=== PATIENT | female | born 1960 | race Hispanic/Latino ===

== ENCOUNTER 2018-09-02 21:50 | Observation (INO) | payer BC, OTHER ==
[~2018-09-02] VITALS: Ht 160 cm; Wt 78.5 kg
[2018-09-02 22:24] LABS: APPEARANCE,URINE Cloudy (CLEAR); BILIRUBIN,URINE Negative (NEGATIVE); COLOR,URINE Yellow (YELLOW); GLUCOSE, URINE (UA) Negative (NEGATIVE); KETONES,URINE Negative (NEGATIVE); LEUKOCYTE ESTERASE ,URINE Large (NEGATIVE); NITRATE,URINE Negative (NEGATIVE); OCCULT BLOOD,URINE Negative (NEGATIVE); PROTEIN,URINE Trace (NEGATIVE); UROBILINOGEN,URINE 0.2 mg/dL (0.2-1.0)
[2018-09-02 22:31] LABS: EOSINOPHILS % (AUTO) 3.8 % (0.0-8.0); HEMATOCRIT 37.4 % (36-48); LYMPHOCYTES % (AUTO) 29.1 % (21.0-51.0); MEAN CORPUSCULAR HEMOGLOBIN 30.8 pg (27.0-33.0); MEAN CORPUSCULAR VOLUME 90.6 fL (79-99); MONOCYTES % (AUTO) 8.9 % (3.0-13.0); NEUTROPHILS % (AUTO) 57.2 % (40.0-77.0); PLATELET COUNT (AUTO) 327 K/uL (130-400); RED BLOOD CELL COUNT(AUTO) 4.13 MIL/uL (4.00-5.50); RED CELL DISTRIBUTION WIDTH 12.9 % (11.0-15.5); WHITE BLOOD COUNT (AUTO) 12.6 K/uL (4.8-10.8)
[2018-09-02 22:41] LABS: CREATININE 1.2 mg/dL (0.5-1.5); POTASSIUM 3.5 mmol/L (3.5-5.1)
[2018-09-02 22:49] LABS: ALBUMIN 3.5 g/dL (3.5-5.0); BILIRUBIN,TOTAL 0.4 mg/dL (0.2-1.0); TOTAL PROTEIN, SERUM 7.3 g/dL (6.0-8.3)
[2018-09-02] MEDS ORDERED: SODIUM CHLORIDE 0.9% 1000ML 1,000 ML IV ONE (22:50)
[2018-09-02] MEDS ORDERED: ONDANSETRON HCL 4 MG/2 ML VIAL ONE (22:50)
[2018-09-02] MEDS ORDERED: MORPHINE SULFATE 4 MG/1ML SYG ONE (22:51)
[2018-09-02 23:09] LABS: BACTERIA,URINE Few /HPF (None Seen); MUCUS,URINE Many LPF (None Seen); RBC,URINE 0-1 /HPF (0-1); SQUAMOUS EPITHELIAL CELL,UR Moderate /HPF (0-2)
[2018-09-02] MEDS ORDERED: CEFTRIAXONE SODIUM 1 GM ONE (23:19)
[2018-09-03] MEDS: CEFTRIAXONE SODIUM 1 GM IV SCH
[2018-09-03] MEDS ORDERED: ONDANSETRON HCL 4 MG/2 ML VIAL IV PRN
[2018-09-03] MEDS ORDERED: FAMOTIDINE/PF 20 MG/2 ML VIAL IV ONE (03:01)
[2018-09-03] MEDS ORDERED: SODIUM CHLORIDE 0.9% 1000ML 1,000 ML IV ONE (03:01)
[2018-09-03] MEDS ORDERED: SODIUM CHLORIDE 0.9% 50 ML IV ONE (03:11)
[2018-09-03 05:25] LABS: BASOPHILS % (AUTO) 1.2 % (0.0-5.0); EOSINOPHILS % (AUTO) 4.1 % (0.0-8.0); HEMATOCRIT 35.6 % (36-48); LYMPHOCYTES % (AUTO) 30.1 % (21.0-51.0); MEAN CORPUSCULAR HEMOGLOBIN 31.2 pg (27.0-33.0); MEAN CORPUSCULAR HGB CONC 34.4 g/dL (32.0-36.0); MEAN CORPUSCULAR VOLUME 90.8 fL (79-99); MONOCYTES % (AUTO) 8.9 % (3.0-13.0); NEUTROPHILS % (AUTO) 55.7 % (40.0-77.0); PLATELET COUNT (AUTO) 328 K/uL (130-400); RED BLOOD CELL COUNT(AUTO) 3.93 MIL/uL (4.00-5.50); RED CELL DISTRIBUTION WIDTH 12.8 % (11.0-15.5); WHITE BLOOD COUNT (AUTO) 10.2 K/uL (4.8-10.8)
[2018-09-03 05:41] LABS: ALBUMIN 2.9 g/dL (3.5-5.0); BILIRUBIN,TOTAL 0.3 mg/dL (0.2-1.0); CREATININE 0.9 mg/dL (0.5-1.5); POTASSIUM 3.7 mmol/L (3.5-5.1); TOTAL PROTEIN, SERUM 6.4 g/dL (6.0-8.3)
[2018-09-03] MEDS: SODIUM CHLORIDE 0.9% 1000ML 1,000 ML IV SCH ×2 (06:40→20:16)
[2018-09-03] MEDS ORDERED: ONDA4TAB10 PO (07:08)
[2018-09-03] MEDS ORDERED: CEFD300C3 PO (07:08)
[2018-09-03] MEDS ORDERED: ATOR10 PO (07:08)
[2018-09-03] MEDS ORDERED: LISI10TA7 PO (07:08)
[2018-09-03] MEDS ORDERED: CIPR-245 PO (07:08)
[2018-09-03] MEDS ORDERED: IBUP-2077 PO (07:08)
[2018-09-03] MEDS ORDERED: METF-446 PO (07:08)
[2018-09-03] MEDS: FAMOTIDINE/PF 20 MG/2 ML VIAL IV SCH ×2 (09:00→21:17)
[2018-09-03] MEDS ORDERED: ACETAMINOPHEN 325 MG TAB ONE (11:57)
[2018-09-03 12:35] VITALS: BP 142/73
[2018-09-03] MEDS: INSULIN LISPRO 100 UNIT/ML 3ML SQ SCH ×2 (12:43→17:15)
[2018-09-03 15:44] VITALS: BP 135/67
[2018-09-03] MEDS: METFORMIN HCL 500 MG TABLET PO SCH (17:00)
[2018-09-03] MEDS ORDERED: ONDANSETRON ODT 4 MG TAB PO PRN (17:00)
[2018-09-03] MEDS: ACETAMINOPHEN 325 MG TAB PO PRN (17:13)
[2018-09-03 19:39] VITALS: BP 133/78
[2018-09-03] MEDS ORDERED: CEFDINIR 300 MG PO SCH (21:00)
[2018-09-03] MEDS: INSULIN GLARGINE 100 UNITS/ML 10 ML VIAL SQ SCH (21:25)
[2018-09-04] MEDS: CEFTRIAXONE SODIUM 1 GM IV SCH (00:02)
[2018-09-04 00:06] VITALS: BP 122/68
[2018-09-04 03:46] VITALS: BP 142/78
[2018-09-04 04:55] LABS: MEAN CORPUSCULAR HEMOGLOBIN 30.8 pg (27.0-33.0); MEAN CORPUSCULAR HGB CONC 33.7 g/dL (32.0-36.0); MEAN CORPUSCULAR VOLUME 91.3 fL (79-99); PLATELET COUNT (AUTO) 337 K/uL (130-400); RED BLOOD CELL COUNT(AUTO) 4.38 MIL/uL (4.00-5.50); RED CELL DISTRIBUTION WIDTH 12.8 % (11.0-15.5); WHITE BLOOD COUNT (AUTO) 11.3 K/uL (4.8-10.8)
[2018-09-04 05:02] LABS: CREATININE 0.6 mg/dL (0.5-1.5); POTASSIUM 3.7 mmol/L (3.5-5.1)
[2018-09-04 07:24] VITALS: BP 142/76
[2018-09-04] MEDS: INSULIN LISPRO 100 UNIT/ML 3ML SQ SCH ×2 (07:53→12:01)
[2018-09-04] MEDS: ATORVASTATIN CALCIUM 20 MG TABLET PO SCH (08:00)
[2018-09-04] MEDS: METFORMIN HCL 500 MG TABLET PO SCH ×2 (08:30→17:04)
[2018-09-04] MEDS: ACETAMINOPHEN 325 MG TAB PO PRN ×3 (08:39→21:39)
[2018-09-04] MEDS: LISINOPRIL 10 MG TABLET PO SCH (08:40)
[2018-09-04] MEDS: FAMOTIDINE/PF 20 MG/2 ML VIAL IV SCH ×2 (08:40→21:26)
[2018-09-04] MEDS ORDERED: LEVOFLOXACIN 500 MG TABLET PO SCH (09:00)
[2018-09-04] MEDS: SODIUM CHLORIDE 0.9% 1000ML 1,000 ML IV SCH ×2 (09:20→18:27)
[2018-09-04 11:19] VITALS: BP 143/76
[2018-09-04] MEDS ORDERED: LINAGLIPTIN 5 MG TABLET PO SCH (14:00)
[2018-09-04] MEDS: LEVOFLOXACIN 500 MG TABLET PO SCH (15:11)
[2018-09-04 15:48] VITALS: BP 134/76
[2018-09-04] MEDS ORDERED: GLIPIZIDE 5 MG TABLET PO SCH (16:30)
[2018-09-04] MEDS: IBUPROFEN 800 MG TAB PO PRN (19:24)
[2018-09-04 19:57] VITALS: BP 143/87
[2018-09-04] MEDS: PHENAZOPYRIDINE HCL 200 MG TABLET PO SCH (21:26)
[2018-09-04] MEDS: METOPROLOL TARTRATE 25 MG TAB PO SCH (21:26)
[2018-09-04] MEDS: INSULIN GLARGINE 100 UNITS/ML 10 ML VIAL SQ SCH (21:37)
[2018-09-05] MEDS: CEFTRIAXONE SODIUM 1 GM IV SCH (00:11)
[2018-09-05 00:19] VITALS: BP 110/58
[2018-09-05 03:12] VITALS: BP 130/82
[2018-09-05] MEDS: IBUPROFEN 800 MG TAB PO PRN ×2 (04:09→14:25)
[2018-09-05 04:56] LABS: HEMATOCRIT 39.5 % (36-48); MEAN CORPUSCULAR HEMOGLOBIN 31.1 pg (27.0-33.0); MEAN CORPUSCULAR HGB CONC 33.2 g/dL (32.0-36.0); MEAN CORPUSCULAR VOLUME 93.6 fL (79-99); PLATELET COUNT (AUTO) 320 K/uL (130-400); RED BLOOD CELL COUNT(AUTO) 4.22 MIL/uL (4.00-5.50); WHITE BLOOD COUNT (AUTO) 10.8 K/uL (4.8-10.8)
[2018-09-05 05:05] LABS: CREATININE 0.6 mg/dL (0.5-1.5); POTASSIUM 3.6 mmol/L (3.5-5.1)
[2018-09-05 08:09] VITALS: BP 141/79
[2018-09-05] MEDS: ATORVASTATIN CALCIUM 20 MG TABLET PO SCH (08:28)
[2018-09-05] MEDS: FAMOTIDINE/PF 20 MG/2 ML VIAL IV SCH (08:28)
[2018-09-05] MEDS: METOPROLOL TARTRATE 25 MG TAB PO SCH (08:28)
[2018-09-05] MEDS: PHENAZOPYRIDINE HCL 200 MG TABLET PO SCH ×2 (08:29→14:24)
[2018-09-05] MEDS: METFORMIN HCL 500 MG TABLET PO SCH (08:29)
[2018-09-05] MEDS: LEVOFLOXACIN 500 MG TABLET PO SCH (08:30)
[2018-09-05] MEDS: LISINOPRIL 10 MG TABLET PO SCH (08:30)
[2018-09-05 11:56] VITALS: BP 132/82
[2018-09-05 15:27] VITALS: BP 132/79
[2018-09-05 16:02] LABS: CREATINE KINASE, TOTAL 51 U/L (21-232); MYOGLOBIN 16 ng/mL (10-92); TROPONIN I < 0.04 ng/mL (0.00-0.06)
[2018-09-05] MEDS ORDERED: METO25 PO (17:28)
[2018-09-05] MEDS ORDERED: INSU3INS3 SQ (17:28)
[2018-09-05] MEDS ORDERED: LEVO500T2 PO (17:28)
== END 2018-09-05 18:35 | disposition home or self-care (01) ==
LOC: EDH 21:50 → EDHIP 23:35 → OBSVTOIN 23:35 → INTOOBSV 23:35 → WSH 09-03 12:35
PROVIDERS: ADMIT Hospitalist; ATTEND Hospitalist
DX: N39.0 Urinary tract infection, site not specified (principal); A41.9 Sepsis, unspecified organism; K85.90 Acute pancreatitis without necrosis or infection, unspecified; E86.1 Hypovolemia; N17.9 Acute kidney failure, unspecified; D72.829 Elevated white blood cell count, unspecified; Z79.4 Long term (current) use of insulin; I10 Essential (primary) hypertension; E78.5 Hyperlipidemia, unspecified; R11.2 Nausea with vomiting, unspecified; K44.9 Diaphragmatic hernia without obstruction or gangrene; K43.9 Ventral hernia without obstruction or gangrene; E11.9 Type 2 diabetes mellitus without complications; Z90.49 Acquired absence of other specified parts of digestive tract
CPT/HCPCS: 36415 ×4; 71046; 74176; 80048 ×2; 80053 ×2; 81001; 82550; 82948 ×9; 83036; 83605; 83690 ×2; 83874; 84478; 84484; 85025 ×2; 85027 ×2; 85651; 86140 ×2; 87088 ×2; 93005; 96361 ×2; 96372 ×2; 96374; 96375; 96376 ×4; 99291; G0378 ×67; J0696 ×3; J2270; J2405; J3490 ×5; J7030 ×3